=== PATIENT | female | born 1930 | race Caucasian/White ===

== ENCOUNTER 2019-07-30 07:58 | Observation (INO) | payer MEDICARE, OTHER ==
[2019-07-30] MEDS ORDERED: Albuterol/Ipratropium 3.0-0.5 MG/3 ML Neb Soln NEB ONE (08:27)
--- NOTE | 2019-07-30 08:29 | EDM.PDOC ---
ED HPI GENERAL MEDICAL PROBLEM - General Chief Complaint: Respiratory Problem Stated Complaint: BAD COLD Time Seen by Provider: 07/30/19 10:42 - History of Present Illness INITIAL COMMENTS - FREE TEXT/NARRATIVE: HISTORY AND PHYSICAL: History of present illness: Patient's 88-year-old female with history of diabetes hypertension who presents with concern of cough and cold symptoms 1 week patient did not receive any screening this year she denies fever chills or other complaints. Review of systems: As per history of present illness and below otherwise all systems reviewed and negative. Past medical history: As per history of present illness and as reviewed below otherwise noncontributory. Surgical history: As per history of present illness and as reviewed below otherwise noncontributory. Social history: No reported history of drug or alcohol abuse. Family history: As per history of present illness and as reviewed below otherwise noncontributory. Physical exam: HEENT: Atraumatic, normocephalic, pupils reactive, negative for conjunctival pallor or scleral icterus, mucous membranes moist, throat clear, neck supple, nontender, trachea midline. Lungs: Clear to auscultation, breath sounds equal bilaterally, chest nontender. Heart: S1S2, regular, negative for clicks, rubs, or JVD. Abdomen: Soft, nondistended, nontender. Negative for masses or hepatosplenomegaly. Negative for costovertebral tenderness. Pelvis: Stable nontender. Genitourinary: Deferred. Rectal: Deferred. Extremities: Atraumatic, negative for cords or calf pain. Neurovascular unremarkable. Neuro: Awake, alert, oriented. Cranial nerves II through XII unremarkable. Cerebellum unremarkable. Motor and sensory unremarkable throughout. Exam nonfocal. Diagnostics: CBC CMP influenza screening chest x-ray EKG BNP Therapeutics: Albuterol ipratropium nebulizer Impression: #1 tracheobronchitis #2 history of hypertension #3 history of non-insulin- dependent diabetes Definitive disposition and diagnosis as appropriate pending reevaluation and review of above. 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 ED EXAM, GENERAL - Physical Exam Exam: See Below (See dictation) Course - Vital Signs Last Recorded V/S: Last Vital Signs Temp 36.2 C 07/30/19 09:30 Pulse 77 07/30/19 09:30 Resp 16 07/30/19 09:30 BP 166/71 H 07/30/19 09:30 Pulse Ox 96 07/30/19 09:30 - Orders/Labs/Meds Orders: Active Orders 24 hr Category Date Time Status EKG Documentation Completion [RC] STAT Care 07/30/19 08:27 Active RT Aerosol Therapy [RC] ASDIRECTED Care 07/30/19 08:27 Active B-TYPE NATRIURETIC PEPTIDE,BNP [CHEM] Stat Lab 07/30/19 08:38 Received Labs: Laboratory Tests 07/30/19 07/30/19 Range/Units 08:38 08:38 WBC 9.47 (4.0-11.0) K/uL RBC 3.77 L (4.30-5.90) M/uL Hgb 11.9 L (12.0-16.0) g/dL Hct 33.8 L (36.0-46.0) % MCV 89.7 (80.0-98.0) fL MCH 31.6 (27.0-32.0) pg MCHC 35.2 (31.0-37.0) g/dL RDW Std Deviation 41.1 (28.0-62.0) fl RDW Coeff of Neftaly 13 (11.0-15.0) % Plt Count 175 (150-400) K/uL MPV 9.70 (7.40-12.00) fL Neut % (Auto) 75.6 (48.0-80.0) % Lymph % (Auto) 15.7 L (16.0-40.0) % [place] % (Auto) 6.5 (0.0-15.0) % Eos % (Auto) 2.0 (0.0-7.0) % Baso % (Auto) 0.2 (0.0-1.5) % Neut # (Auto) 7.2 H (1.4-5.7) K/uL Lymph # (Auto) 1.5 (0.6-2.4) K/uL [place] # (Auto) 0.6 (0.0-0.8) K/uL Eos # (Auto) 0.2 (0.0-0.7) K/uL Baso # (Auto) 0.0 (0.0-0.1) K/uL Nucleated RBC % 0.0 /100WBC Nucleated RBCs # 0 K/uL Sodium 123 L (136-145) mmol/L Potassium 4.6 (3.5-5.1) mmol/L Chloride 90 L (98-107) mmol/L Carbon Dioxide 20.4 L (21.0-32.0) mmol/L BUN 26 H (7.0-18.0) mg/dL Creatinine 0.9 (0.6-1.0) mg/dL Est Cr Clr Drug Dosing 32.60 mL/min Estimated GFR (MDRD) 59.1 ml/min Glucose 191 H (74-106) mg/dL Calcium 9.0 (8.5-10.1) mg/dL Total Bilirubin 0.3 (0.2-1.0) mg/dL AST 33 (15-37) IU/L ALT 30 (14-63) IU/L Alkaline Phosphatase 47 (46-116) U/L Total Protein 7.5 (6.4-8.2) g/dL Albumin 3.7 (3.4-5.0) g/dL Globulin 3.8 (2.6-4.0) g/dL Albumin/Globulin Ratio 1.0 (0.9-1.6) Meds: Medications Discontinued Medications Generic Name Dose Route Start Last Admin Trade Name Elana PRN Reason Stop Dose Admin Albuterol/Ipratropium 3 ml 07/30/19 08:27 07/30/19 09:06 Duoneb 3.0-0.5 Mg/3 Ml NEB 07/30/19 08:28 3 ml ONETIME ONE Administration Departure - Departure Time of Disposition: 10:42 Disposition: Refer to Observation Condition: Good Clinical Impression: Viral syndrome, Hyponatremia, Dehydration - Discharge Information Referrals: Afia Leo DO [Primary Care Provider] - Forms: ED Department Discharge - My Orders Last 24 Hours: My Active Orders 07/30/19 08:27 EKG Documentation Completion [RC] STAT RT Aerosol Therapy [RC] ASDIRECTED 07/30/19 08:38 B-TYPE NATRIURETIC PEPTIDE,BNP [CHEM] Stat - Assessment/Plan Last 24 Hours: My Active Orders 07/30/19 08:27 EKG Documentation Completion [RC] STAT RT Aerosol Therapy [RC] ASDIRECTED 07/30/19 08:38 B-TYPE NATRIURETIC PEPTIDE,BNP [CHEM] Stat
[2019-07-30 09:20] LABS: CARBON DIOXIDE,CO2 20.4 mmol/L (21.0-32.0); POTASSIUM,K 4.6 mmol/L (3.5-5.1)
--- NOTE | 2019-07-30 10:24 | CR ---
INDICATION: Cough COMPARISON: none TECHNIQUE: Two view chest. FINDINGS: The lungs are clear. The heart, mediastinum and pulmonary vessels are of normal size. There is no evidence of pleural fluid. IMPRESSION: Negative chest. Dictated by Joe Babin MD @ Jul 30 2019 10:21AM Signed by Dr. Joe Babin @ Jul 30 2019 10:22AM
[2019-07-30] MEDS: Sodium Chloride 0.9% 1,000 ML IV SCH ×2 (11:00→18:37)
--- NOTE | 2019-07-30 11:50 | PCM.HP.2 ---
H&P History of Present Illness - General Date of Service: 07/30/19 Admit Problem/Dx: Admission Diagnosis/Problem Admission Diagnosis/Problem Hyponatremia - History of Present Illness Initial Comments - Free Text/Narative: 88 yo female with pmh of DM who presents to the ED with complaint of cold symptoms for past 6 days. Patient has had a cough and nasal congestion. She denies any fevers or shortness of breath. She reports feeling dizzy but thought this was due to the cold medicine she had been taking at night. She reports she has not been eating and drinking as much as she usually does. - Related Data Allergies/Adverse Reactions: Allergies Allergy/AdvReac Type Severity Reaction Status Date / Time No Known Allergies Allergy Verified 07/30/19 15:26 Home Medications: Home Meds Aspirin 81 mg PO BEDTIME 07/30/19 [History] Glimepiride 3 mg PO DAILY 07/30/19 [History] Lisinopril 2.5 mg PO DAILY 07/30/19 [History] Simvastatin 20 mg PO BEDTIME 07/30/19 [History] SitaGLIPtin [Januvia] 25 mg PO BEDTIME 07/30/19 [History] metFORMIN HCl [Metformin HCl ER] 500 mg PO BID 07/30/19 [History] Past Medical History HEENT History: Reports: Impaired Vision Cardiovascular History: Reports: High Cholesterol, Hypertension 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 Exam - Exam Exam: See Below - Vital Signs Vital Signs: Last Vital Signs Temp 36.2 C 07/30/19 09:30 Pulse 77 07/30/19 09:30 Resp 16 07/30/19 09:30 BP 166/71 H 07/30/19 09:30 Pulse Ox 96 07/30/19 09:30 Weight: 76 kg - Exam General: Alert, Oriented HEENT: Mucosa Moist & [place], Posterior Pharynx Clear Lungs: Clear to Auscultation, Normal Respiratory Effort Cardiovascular: Regular Rate, Regular Rhythm GI/Abdominal Exam: Normal Bowel Sounds, Soft, Non-Tender Extremities: Non-Tender, No Pedal Edema Skin: Warm, Dry, Intact - Patient Data Lab Results Last 24 hrs: Laboratory Results - last 24 hr 07/30/19 07/30/19 07/30/19 Range/Units 08:38 08:38 08:38 WBC 9.47 (4.0-11.0) K/uL RBC 3.77 L (4.30-5.90) M/uL Hgb 11.9 L (12.0-16.0) g/dL Hct 33.8 L (36.0-46.0) % MCV 89.7 (80.0-98.0) fL MCH 31.6 (27.0-32.0) pg MCHC 35.2 (31.0-37.0) g/dL RDW Std Deviation 41.1 (28.0-62.0) fl RDW Coeff of Neftaly 13 (11.0-15.0) % Plt Count 175 (150-400) K/uL MPV 9.70 (7.40-12.00) fL Neut % (Auto) 75.6 (48.0-80.0) % Lymph % (Auto) 15.7 L (16.0-40.0) % [place] % (Auto) 6.5 (0.0-15.0) % Eos % (Auto) 2.0 (0.0-7.0) % Baso % (Auto) 0.2 (0.0-1.5) % Neut # (Auto) 7.2 H (1.4-5.7) K/uL Lymph # (Auto) 1.5 (0.6-2.4) K/uL [place] # (Auto) 0.6 (0.0-0.8) K/uL Eos # (Auto) 0.2 (0.0-0.7) K/uL Baso # (Auto) 0.0 (0.0-0.1) K/uL Nucleated RBC % 0.0 /100WBC Nucleated RBCs # 0 K/uL Sodium 123 L (136-145) mmol/L Potassium 4.6 (3.5-5.1) mmol/L Chloride 90 L (98-107) mmol/L Carbon Dioxide 20.4 L (21.0-32.0) mmol/L BUN 26 H (7.0-18.0) mg/dL Creatinine 0.9 (0.6-1.0) mg/dL Est Cr Clr Drug Dosing 32.60 mL/min Estimated GFR (MDRD) 59.1 ml/min Glucose 191 H (74-106) mg/dL Calcium 9.0 (8.5-10.1) mg/dL Total Bilirubin 0.3 (0.2-1.0) mg/dL AST 33 (15-37) IU/L ALT 30 (14-63) IU/L Alkaline Phosphatase 47 (46-116) U/L B-Natriuretic Peptide 61 (<100) PG/ML Total Protein 7.5 (6.4-8.2) g/dL Albumin 3.7 (3.4-5.0) g/dL Globulin 3.8 (2.6-4.0) g/dL Albumin/Globulin Ratio 1.0 (0.9-1.6) Result Diagrams: 07/30/19 08:38 07/31/19 14:55 Epi Results Last 24 hrs: Microbiology 07/30/19 08:27 Influenza Type A Antigen Screen - Final Nasopharyngeal Swab NEGATIVE INFLUENZA A VIRUS AG REFERENCE RANGE: NEGATIVE Influenza Type B Antigen Screen - Final NEGATIVE INFLUENZA B VIRUS AG REFERENCE RANGE: NEGATIVE Problem List Initiated/Reviewed/Updated: Yes Orders Last 24hrs: Active Orders 24 hr Category Date Time Status Patient Status [ADT] Stat ADT 07/30/19 10:43 Active Antiembolic Devices [RC] PER UNIT ROUTINE Care 07/30/19 11:46 Ordered Blood Glucose Check, Bedside [RC] TIDMEALS Care 07/30/19 11:46 Ordered EKG Documentation Completion [RC] STAT Care 07/30/19 08:27 Active Oxygen Therapy [RC] PRN Care 07/30/19 11:46 Ordered RT Aerosol Therapy [RC] ASDIRECTED Care 07/30/19 08:27 Active Up ad Candi [RC] ASDIRECTED Care 07/30/19 11:46 Ordered VTE/DVT Education [RC] PER UNIT ROUTINE Care 07/30/19 11:46 Ordered Vital Signs [RC] Q4H Care 07/30/19 11:46 Ordered [place] [employer] Diet [DIET] Diet 07/30/19 Dinner Ordered BMP [BASIC METABOLIC PANEL,BMP] [CHEM] Q6H Lab 07/30/19 14:00 Ordered BMP [BASIC METABOLIC PANEL,BMP] [CHEM] Q6H Lab 07/30/19 20:00 Ordered BMP [BASIC METABOLIC PANEL,BMP] [CHEM] Q6H Lab 07/31/19 02:00 Ordered BMP [BASIC METABOLIC PANEL,BMP] [CHEM] Q6H Lab 07/31/19 08:00 Ordered Aspirin Med 07/31/19 09:00 Ordered 81 mg PO DAILY Insulin Aspart [NovoLOG] Med 07/30/19 17:00 Ordered See Protocol SUBCUT TIDAC Lisinopril Med 07/31/19 09:00 Ordered 2.5 mg PO DAILY Simvastatin [Zocor] Med 07/31/19 09:00 Ordered 20 mg PO DAILY Sodium Chloride 0.9% [Normal Saline] 1,000 ml Med 07/30/19 10:45 Active IV ASDIRECTED Sequential Compression Device [OM.PC] Per Unit Routine Oth 07/30/19 11:46 Ordered Resuscitation Status Routine Resus Stat 07/30/19 11:46 Ordered Medication Orders Aspirin (Aspirin) 81 mg PO DAILY ANDREW Sodium Chloride (Normal Saline) 1,000 mls @ 125 mls/hr IV ASDIRECTED ANDREW Last Admin: 07/30/19 11:00 Dose: 125 mls/hr Insulin Aspart (Novolog) 0 unit SUBCUT TIDAC ANDREW; Protocol Non-Formulary Medication (Lisinopril) 2.5 mg PO DAILY ANDREW Simvastatin (Zocor) 20 mg PO DAILY ANDREW Assessment/Plan Comment:: 88 yo female admitted for hyponatremia [facility] due to dehydration from acute viral upper respiratory track infection. We will give normal saline and monitor her sodium.
[2019-07-30 14:37] LABS: CARBON DIOXIDE,CO2 25.8 mmol/L (21.0-32.0); POTASSIUM,K 4.8 mmol/L (3.5-5.1)
[2019-07-30] MEDS ORDERED: Pneumococcal Polyvalent-23 Vaccine 0.5 ML SDV IM ONE (15:10)
[2019-07-30] MEDS: Insulin Aspart 100 Units/ML 3 ML Pen SUBCUT SCH (17:16)
[2019-07-30] MEDS ORDERED: guaiFENesin 600 MG Tab.ER PO PRN (18:09)
[2019-07-30 21:38] LABS: CARBON DIOXIDE,CO2 21.2 mmol/L (21.0-32.0)
[2019-07-31 02:18] LABS: BLOOD UREA NITROGEN,BUN 14 mg/dL (7.0-18.0); CHLORIDE,CL 94 mmol/L (98-107); GLUCOSE RANDOM 172 mg/dL (74-106); POTASSIUM,K 4.4 mmol/L (3.5-5.1); SODIUM,NA 127 mmol/L (136-145)
[2019-07-31] MEDS: Sodium Chloride 0.9% 1,000 ML IV SCH ×3 (02:46→18:20)
[2019-07-31] MEDS ORDERED: Acetaminophen 325 MG Tab PO PRN (03:44)
[2019-07-31] MEDS: Insulin Aspart 100 Units/ML 3 ML Pen SUBCUT SCH ×3 (06:30→17:49)
[2019-07-31] MEDS: Simvastatin 20 MG Tab PO SCH (09:24)
[2019-07-31] MEDS: Aspirin 81 MG Tab.Chew PO SCH (09:25)
[2019-07-31] MEDS: Lisinopril 5 MG Tab PO SCH (09:25)
[2019-07-31 09:53] LABS: BLOOD UREA NITROGEN,BUN 12 mg/dL (7.0-18.0); CARBON DIOXIDE,CO2 23.5 mmol/L (21.0-32.0); CHLORIDE,CL 97 mmol/L (98-107); GLUCOSE RANDOM 152 mg/dL (74-106); POTASSIUM,K 4.3 mmol/L (3.5-5.1); SODIUM,NA 128 mmol/L (136-145)
--- NOTE | 2019-07-31 11:38 | PCM.PN ---
- General Info Date of Service: 07/31/19 Admission Dx/Problem (Free Text): Admission Diagnosis/Problem Admission Diagnosis/Problem Hyponatremia Subjective Update: Feeling a little better today, continues to have alaina cough and didn't sleep well. No chest pain, no shortness of breath. Functional Status: Reports: Pain Controlled, Tolerating Diet, Ambulating, Urinating - Review of Systems General: Reports: Fatigue, Malaise HEENT: Reports: Sinus Congestion. Denies: Headaches, Sore Throat, Visual Changes Pulmonary: Reports: Cough (dry). Denies: Shortness of Breath, Wheezing Cardiovascular: Reports: No Symptoms. Denies: Chest Pain, Palpitations Gastrointestinal: Reports: No Symptoms. Denies: Abdominal Pain, Nausea, Vomiting Genitourinary: Reports: No Symptoms Musculoskeletal: Reports: No Symptoms Skin: Reports: No Symptoms Neurological: Reports: No Symptoms Psychiatric: Reports: No Symptoms - Patient Data Vitals - Most Recent: Last Vital Signs Temp 98.2 F 07/31/19 07:53 Pulse 69 07/31/19 07:53 Resp 16 07/31/19 07:53 BP 149/64 H 07/31/19 09:25 Pulse Ox 95 07/31/19 07:53 Weight - Most Recent: 73.028 kg I&O - Last 24 Hours: Intake & Output 07/30/19 07/31/19 07/31/19 22:59 06:59 14:59 Intake Total 2600 655 Output Total 1400 Balance 1200 655 Lab Results Last 24 Hours: Laboratory Results - last 24 hr 07/30/19 07/30/19 07/30/19 Range/Units 13:35 14:05 15:41 Sodium 124 L (136-145) mmol/L Potassium 4.8 (3.5-5.1) mmol/L Chloride 92 L (98-107) mmol/L Carbon Dioxide 25.8 (21.0-32.0) mmol/L BUN 24 H (7.0-18.0) mg/dL Creatinine 1.1 H (0.6-1.0) mg/dL Est Cr Clr Drug Dosing 25.39 mL/min Estimated GFR (MDRD) 46.9 ml/min Glucose 225 H (74-106) mg/dL POC Glucose 232 H 155 H (60-110) mg/dL Calcium 8.9 (8.5-10.1) mg/dL 07/30/19 07/31/19 07/31/19 Range/Units 20:15 01:58 05:59 Sodium 126 L 127 L (136-145) mmol/L Potassium 5.0 4.4 (3.5-5.1) mmol/L Chloride 94 L 94 L (98-107) mmol/L Carbon Dioxide 21.2 25.0 (21.0-32.0) mmol/L BUN 19 H 14 (7.0-18.0) mg/dL Creatinine 0.9 0.8 (0.6-1.0) mg/dL Est Cr Clr Drug Dosing 31.04 34.91 mL/min Estimated GFR (MDRD) 59.1 > 60.0 ml/min Glucose 272 H 172 H (74-106) mg/dL POC Glucose 159 H (60-110) mg/dL Calcium 8.6 8.1 L (8.5-10.1) mg/dL 07/31/19 Range/Units 08:20 Sodium 128 L (136-145) mmol/L Potassium 4.3 (3.5-5.1) mmol/L Chloride 97 L (98-107) mmol/L Carbon Dioxide 23.5 (21.0-32.0) mmol/L BUN 12 (7.0-18.0) mg/dL Creatinine 0.8 (0.6-1.0) mg/dL Est Cr Clr Drug Dosing 34.91 mL/min Estimated GFR (MDRD) > 60.0 ml/min Glucose 152 H (74-106) mg/dL POC Glucose (60-110) mg/dL Calcium 8.2 L (8.5-10.1) mg/dL Epi Results Last 24 Hours: Microbiology 07/30/19 08:27 Influenza Type A Antigen Screen - Final Nasopharyngeal Swab NEGATIVE INFLUENZA A VIRUS AG REFERENCE RANGE: NEGATIVE Influenza Type B Antigen Screen - Final NEGATIVE INFLUENZA B VIRUS AG REFERENCE RANGE: NEGATIVE Med Orders - Current: Current Medications Acetaminophen (Tylenol) 650 mg PO Q6H PRN PRN Reason: Pain Last Admin: 07/31/19 04:01 Dose: 650 mg Aspirin (Aspirin) 81 mg PO DAILY ANDREW Last Admin: 07/31/19 09:25 Dose: 81 mg Benzonatate (Tessalon Perles) 100 mg PO TID [facility] Guaifenesin (Mucinex) 600 mg PO BID PRN PRN Reason: Congestion Last Admin: 07/30/19 18:48 Dose: 600 mg Sodium Chloride (Normal Saline) 1,000 mls @ 125 mls/hr IV ASDIRECTED [facility] Last Admin: 07/31/19 10:54 Dose: 125 mls/hr Insulin Aspart (Novolog) 0 unit SUBCUT TIDAC [facility]; Protocol Last Admin: 07/31/19 06:30 Dose: 1 unit Lisinopril (Prinivil) 2.5 mg PO DAILY [facility] Last Admin: 07/31/19 09:25 Dose: 2.5 mg Simvastatin (Zocor) 20 mg PO DAILY [facility] Last Admin: 07/31/19 09:24 Dose: 20 mg Discontinued Medications Albuterol/Ipratropium (Duoneb 3.0-0.5 Mg/3 Ml) 3 ml NEB ONETIME ONE Stop: 07/30/19 08:28 Last Admin: 07/30/19 09:06 Dose: 3 ml Influenza Virus Vaccine (Pharmacy To Dose - Influenza Vaccine) 1 each IM ONETIME ONE Stop: 07/30/19 15:11 Influenza Virus Vaccine (Fluzone High-Dose 2019-20 Syringe) 180 mcg IM .ONCE ONE Stop: 07/30/19 15:16 Pneumococcal Polyvalent Vaccine (Pneumovax 23) 0.5 ml IM .ONCE ONE Stop: 07/30/19 15:11 - Exam General: Alert, Oriented, Cooperative, No Acute Distress Lungs: Clear to Auscultation, Normal Respiratory Effort Cardiovascular: Regular Rate, Regular Rhythm GI/Abdominal Exam: Normal Bowel Sounds, Soft, Non-Tender, No Organomegaly Extremities: Normal Inspection, Normal Range of Motion, Non-Tender, No Pedal Edema Neurological: No New Focal Deficit Psy/Mental Status: Alert, Normal Affect, Normal Mood - Problem List & Annotations (1) Viral bronchitis SNOMED Code(s): 15144405 Code(s): J20.8 - ACUTE BRONCHITIS DUE TO OTHER SPECIFIED ORGANISMS Status: Acute Current Visit: Yes (2) Dehydration SNOMED Code(s): 33344085 Code(s): E86.0 - DEHYDRATION Status: Acute Current Visit: Yes (3) Hyponatremia SNOMED Code(s): 97542902 Code(s): E87.1 - HYPO-OSMOLALITY AND HYPONATREMIA Status: Acute Current Visit: Yes (4) HTN (hypertension) SNOMED Code(s): 04590575 Code(s): I10 - ESSENTIAL (PRIMARY) HYPERTENSION Status: Chronic Current Visit: Yes Qualifiers: Hypertension type: essential hypertension Qualified Code(s): I10 - Essential (primary) hypertension (5) DM type 2 (diabetes mellitus, type 2) SNOMED Code(s): 01034942 Code(s): E11.9 - TYPE 2 DIABETES MELLITUS WITHOUT COMPLICATIONS Status: Chronic Current Visit: Yes Qualifiers: Diabetes mellitus fci insulin use: without fci use Diabetes mellitus complication status: without complication Qualified Code(s): E11.9 - Type 2 diabetes mellitus without complications - Problem List Review Problem List Initiated/Reviewed/Updated: Yes - My Orders Last 24 Hours: My Active Orders 07/31/19 11:33 Benzonatate [Tessalon Perles] 100 mg PO TID - Plan Plan:: 88 yo female admitted for hyponatremia likely due to dehydration from acute viral upper respiratory tract infection. 1. Hyponatremia: Slow steady improvement, Na 128 this morning. Contnue IVFs at NS 125. Explained to her we like slow improvement. 2. Viral bronchitis/URI: Add Tessalon perles for cough. Monitor. 3. HTN: Stable, continue medication 4. DM Type 2: Continue medications, BS stable. Novolog SSI. VTE prophylaxis: Ambulation and SCDs Dispo: 1 day
[2019-07-31] MEDS: Benzonatate 100 MG Cap PO SCH ×3 (12:17→21:14)
[2019-07-31 15:57] LABS: BLOOD UREA NITROGEN,BUN 11 mg/dL (7.0-18.0); CARBON DIOXIDE,CO2 24.5 mmol/L (21.0-32.0); CHLORIDE,CL 98 mmol/L (98-107); GLUCOSE RANDOM 202 mg/dL (74-106); POTASSIUM,K 4.4 mmol/L (3.5-5.1); SODIUM,NA 130 mmol/L (136-145)
[2019-07-31 21:26] LABS: CARBON DIOXIDE,CO2 25.5 mmol/L (21.0-32.0); POTASSIUM,K 4.7 mmol/L (3.5-5.1)
[2019-08-01] MEDS: Sodium Chloride 0.9% 1,000 ML IV SCH ×2 (02:54→10:52)
[2019-08-01 03:34] LABS: BLOOD UREA NITROGEN,BUN 10 mg/dL (7.0-18.0); CARBON DIOXIDE,CO2 25.7 mmol/L (21.0-32.0); CHLORIDE,CL 99 mmol/L (98-107); GLUCOSE RANDOM 184 mg/dL (74-106); POTASSIUM,K 4.3 mmol/L (3.5-5.1); SODIUM,NA 133 mmol/L (136-145)
[2019-08-01] MEDS: Benzonatate 100 MG Cap PO SCH ×2 (06:32→13:18)
[2019-08-01] MEDS: Insulin Aspart 100 Units/ML 3 ML Pen SUBCUT SCH ×2 (06:35→12:44)
[2019-08-01] MEDS: Aspirin 81 MG Tab.Chew PO SCH (08:04)
[2019-08-01] MEDS: Lisinopril 5 MG Tab PO SCH (08:04)
[2019-08-01] MEDS: Simvastatin 20 MG Tab PO SCH (08:04)
[2019-08-01] MEDS ORDERED: Benzocaine/Cetylpyridinium/Menthol Lozenge MUCMEM PRN ×2 (08:56→11:29)
[2019-08-01 09:28] LABS: BLOOD UREA NITROGEN,BUN 10 mg/dL (7.0-18.0); CARBON DIOXIDE,CO2 22.7 mmol/L (21.0-32.0); CHLORIDE,CL 98 mmol/L (98-107); GLUCOSE RANDOM 295 mg/dL (74-106); POTASSIUM,K 4.3 mmol/L (3.5-5.1); SODIUM,NA 130 mmol/L (136-145)
[2019-08-01] MEDS: hydrALAZINE 20 MG/ML SDV IVPUSH ONE ×2 (12:44→17:17)
[2019-08-01] MEDS ORDERED: Lisinopril 5 MG Tab PO ONE (13:04)
--- NOTE | 2019-08-01 16:25 | PCM.DCSUM1 ---
<Ronald Matthews - Last Filed: 08/01/19 21:34> Discharge Summary - Hospital Course Free Text/Narrative:: 88-year-old female admitted for hyponatremia secondary to dehydration and acute viral bronchitis. She has a PMH of DM type 2, hyperlipidemia and HTN. Her sodium level on admission was 123. She was started on IV NS and BMP's were trended. Her sodium levels improved slowly throughout her hospitalization. On day of discharge, patient reported feeling better and ambulated without any difficulty. Patient also noted to have elevated blood pressures during hospitalization and her lisinopril dose was increased from 2.5 mg qd to 10 mg qd on discharge. Patient advised to follow-up with her PCP. - Discharge Data Discharge Date: 08/01/19 Discharge Disposition: Home, Self-Care 01 Condition: Good - Referral to Home Health Primary Care Physician: Afia Leo DO - Patient Instructions Diet: Diabetic Diet Activity: As Tolerated Notify Provider of: Fever, Increased Pain, Swelling and Redness, Drainage, Nausea and/or Vomiting - Discharge Plan *PRESCRIPTION DRUG MONITORING PROGRAM REVIEWED*: Not Applicable *COPY OF PRESCRIPTION DRUG MONITORING REPORT IN PATIENT ANA MARÍA: Not Applicable Prescriptions/Med Rec: Benzonatate [Tessalon Perle] 100 mg PO Q8H PRN 4 Days #12 capsule PRN Reason: Cough Lisinopril 10 mg PO DAILY 30 Days #30 tablet Home Medications: Home Meds Aspirin 81 mg PO BEDTIME 07/30/19 [History] Glimepiride 3 mg PO DAILY 07/30/19 [History] Simvastatin 20 mg PO BEDTIME 07/30/19 [History] SitaGLIPtin [Januvia] 25 mg PO BEDTIME 07/30/19 [History] metFORMIN HCl [Metformin HCl ER] 500 mg PO BID 07/30/19 [History] Benzonatate [Tessalon Perle] 100 mg PO Q8H PRN 4 Days #12 capsule 08/01/19 [Rx] Lisinopril 10 mg PO DAILY 30 Days #30 tablet 08/01/19 [Rx] Patient Handouts: Hyponatremia, [id number], Lisinopril tablets, Benzonatate capsules Referrals: Sonia Morrissey MD [Ordering Only Provider] - 08/11/19 10:45 am (Please arrive 15 minutes early for check-in ) - Discharge Summary/Plan Comment DC Time >30 min.: No - Patient Data Vitals - Most Recent: Last Vital Signs Temp 98.3 F 08/01/19 16:00 Pulse 77 08/01/19 16:00 Resp 20 08/01/19 16:00 BP 175/84 H 08/01/19 14:03 Pulse Ox 97 08/01/19 16:00 Weight - Most Recent: 76 kg I&O - Last 24 hours: Intake & Output 08/01/19 08/01/19 08/01/19 06:59 14:59 22:59 Intake Total 2760 Output Total 1000 Balance 1760 Lab Results - Last 24 hrs: Laboratory Results - last 24 hr 07/31/19 07/31/19 07/31/19 Range/Units 16:43 17:40 21:05 Sodium 132 L (136-145) mmol/L Potassium 4.7 (3.5-5.1) mmol/L Chloride 98 (98-107) mmol/L Carbon Dioxide 25.5 (21.0-32.0) mmol/L BUN 13 (7.0-18.0) mg/dL Creatinine 0.9 (0.6-1.0) mg/dL Est Cr Clr Drug Dosing 31.04 mL/min Estimated GFR (MDRD) 59.1 ml/min Glucose 209 H (74-106) mg/dL POC Glucose 172 H 142 H (60-110) mg/dL Calcium 8.4 L (8.5-10.1) mg/dL 08/01/19 08/01/19 08/01/19 Range/Units 03:05 06:33 09:07 Sodium 133 L 130 L (136-145) mmol/L Potassium 4.3 4.3 (3.5-5.1) mmol/L Chloride 99 98 (98-107) mmol/L Carbon Dioxide 25.7 22.7 (21.0-32.0) mmol/L BUN 10 10 (7.0-18.0) mg/dL Creatinine 0.8 0.8 (0.6-1.0) mg/dL Est Cr Clr Drug Dosing 34.91 34.91 mL/min Estimated GFR (MDRD) > 60.0 > 60.0 ml/min Glucose 184 H 295 H (74-106) mg/dL POC Glucose 159 H (60-110) mg/dL Calcium 8.3 L 8.1 L (8.5-10.1) mg/dL 08/01/19 Range/Units 12:01 Sodium (136-145) mmol/L Potassium (3.5-5.1) mmol/L Chloride (98-107) mmol/L Carbon Dioxide (21.0-32.0) mmol/L BUN (7.0-18.0) mg/dL Creatinine (0.6-1.0) mg/dL Est Cr Clr Drug Dosing mL/min Estimated GFR (MDRD) ml/min Glucose (74-106) mg/dL POC Glucose 166 H (60-110) mg/dL Calcium (8.5-10.1) mg/dL Med Orders - Current: Current Medications Acetaminophen (Tylenol) 650 mg PO Q6H PRN PRN Reason: Pain Last Admin: 07/31/19 04:01 Dose: 650 mg Aspirin (Aspirin) 81 mg PO DAILY [facility] Last Admin: 08/01/19 08:04 Dose: 81 mg Benzocaine/Menthol (Cepacol Sore Throat) 1 lozenge MUCMEM Q2H PRN PRN Reason: Sore Throat Benzonatate (Tessalon Perles) 100 mg PO TID [facility] Last Admin: 08/01/19 13:18 Dose: 100 mg Guaifenesin (Mucinex) 600 mg PO BID PRN PRN Reason: Congestion Last Admin: 07/30/19 18:48 Dose: 600 mg Sodium Chloride (Normal Saline) 1,000 mls @ 125 mls/hr IV ASDIRECTED [facility] Last Admin: 08/01/19 10:52 Dose: 125 mls/hr Insulin Aspart (Novolog) 0 unit SUBCUT TIDAC [facility]; Protocol Last Admin: 08/01/19 12:44 Dose: 1 unit Lisinopril (Prinivil) 2.5 mg PO DAILY [facility] Last Admin: 08/01/19 08:04 Dose: 2.5 mg Simvastatin (Zocor) 20 mg PO DAILY [facility] Last Admin: 08/01/19 08:04 Dose: 20 mg Discontinued Medications Albuterol/Ipratropium (Duoneb 3.0-0.5 Mg/3 Ml) 3 ml NEB ONETIME ONE Stop: 07/30/19 08:28 Last Admin: 07/30/19 09:06 Dose: 3 ml Benzocaine/Menthol (Cepacol Sore Throat) 1 lozenge MUCMEM Q4H PRN PRN Reason: Sore Throat Last Admin: 08/01/19 10:21 Dose: 1 lozenge Hydralazine HCl (Apresoline) 20 mg IVPUSH ONETIME ONE Stop: 08/01/19 12:27 Influenza Virus Vaccine (Pharmacy To Dose - Influenza Vaccine) 1 each IM ONETIME ONE Stop: 07/30/19 15:11 Influenza Virus Vaccine (Fluzone High-Dose 2018- Syringe) 180 mcg IM .ONCE ONE Stop: 07/30/19 15:16 Lisinopril (Prinivil) 2.5 mg PO ONETIME ONE Stop: 08/01/19 13:05 Last Admin: 08/01/19 13:18 Dose: 2.5 mg Pneumococcal Polyvalent Vaccine (Pneumovax 23) 0.5 ml IM .ONCE ONE Stop: 07/30/19 15:11 <Kenzie Lewis - Last Filed: 08/04/19 11:23> Discharge Summary - Hospital Course HPI Initial Comments: I have seen and evaluated the patient and agree with the residents note unless specified in my note - Referral to Home Health Primary Care Physician: Afia Leo DO - Patient Data Vitals - Most Recent: Last Vital Signs Temp 36.8 C 08/01/19 16:00 Pulse 77 08/01/19 16:00 Resp 20 08/01/19 16:00 BP 175/84 H 08/01/19 14:03 Pulse Ox 97 08/01/19 16:00 Med Orders - Current: Current Medications Discontinued Medications Acetaminophen (Tylenol) 650 mg PO Q6H PRN PRN Reason: Pain Last Admin: 07/31/19 04:01 Dose: 650 mg Albuterol/Ipratropium (Duoneb 3.0-0.5 Mg/3 Ml) 3 ml NEB ONETIME ONE Stop: 07/30/19 08:28 Last Admin: 07/30/19 09:06 Dose: 3 ml Aspirin (Aspirin) 81 mg PO DAILY [facility] Last Admin: 08/01/19 08:04 Dose: 81 mg Benzocaine/Menthol (Cepacol Sore Throat) 1 lozenge MUCMEM Q4H PRN PRN Reason: Sore Throat Last Admin: 08/01/19 10:21 Dose: 1 lozenge Benzocaine/Menthol (Cepacol Sore Throat) 1 lozenge MUCMEM Q2H PRN PRN Reason: Sore Throat Benzonatate (Tessalon Perles) 100 mg PO TID [facility] Last Admin: 08/01/19 13:18 Dose: 100 mg Guaifenesin (Mucinex) 600 mg PO BID PRN PRN Reason: Congestion Last Admin: 07/30/19 18:48 Dose: 600 mg Hydralazine HCl (Apresoline) 20 mg IVPUSH ONETIME ONE Stop: 08/01/19 12:27 Last Admin: 08/01/19 17:17 Dose: Not Given Sodium Chloride (Normal Saline) 1,000 mls @ 125 mls/hr IV ASDIRECTED [facility] Last Admin: 08/01/19 10:52 Dose: 125 mls/hr Influenza Virus Vaccine (Pharmacy To Dose - Influenza Vaccine) 1 each IM ONETIME ONE Stop: 07/30/19 15:11 Influenza Virus Vaccine (Fluzone High-Dose 2019-20 Syringe) 180 mcg IM .ONCE ONE Stop: 07/30/19 15:16 Insulin Aspart (Novolog) [facility]; Protocol Last Admin: 08/01/19 12:44 Dose: 1 unit Lisinopril (Prinivil) 2.5 mg PO DAILY [facility] Last Admin: 08/01/19 08:04 Dose: 2.5 mg Lisinopril (Prinivil) 2.5 mg PO ONETIME ONE Stop: 08/01/19 13:05 Last Admin: 08/01/19 13:18 Dose: 2.5 mg Pneumococcal Polyvalent Vaccine (Pneumovax 23) 0.5 ml IM .ONCE ONE Stop: 07/30/19 15:11 Simvastatin (Zocor) 20 mg PO DAILY [facility] Last Admin: 08/01/19 08:04 Dose: 20 mg
== END 2019-08-01 16:15 | disposition home or self-care (01) ==
LOC: MW.ED 07:58 → MW.MS 13:26
PROVIDERS: ADMIT Internal Medicine; ATTEND Internal Medicine
DX: E87.1 Hypo-osmolality and hyponatremia (principal); E86.0 Dehydration; J20.8 Acute bronchitis due to other specified organisms; E11.9 Type 2 diabetes mellitus without complications; E78.5 Hyperlipidemia, unspecified; I10 Essential (primary) hypertension; E78.00 Pure hypercholesterolemia, unspecified
CPT/HCPCS: 36415; 71046; 80048; 80053; 82962; 83880; 85025; 87804; 93005; 94640; 96360; 96361; 99285; A9270; J1815; J7030; 99284; G0378; J0360; J7620-GY

== ENCOUNTER 2019-08-01 21:22 | Emergency (ER) | payer MEDICARE, OTHER ==
--- NOTE | 2019-08-01 21:45 | EDM.PDOC ---
ED HPI GENERAL MEDICAL PROBLEM - General Chief Complaint: General Stated Complaint: BLOOD PRESSURE CLIMBING Time Seen by Provider: 08/01/19 21:44 Source of Information: Reports: Patient - History of Present Illness INITIAL COMMENTS - FREE TEXT/NARRATIVE: HISTORY AND PHYSICAL: History of present illness: [D[place] with hypertension and recent discharge presents with elevated blood pressure, her son seems to be checking her blood pressure repeatedly this is making her agitated and anxious she does not have any other symptoms no fever nausea vomiting chills sweats no chest pain shortness breath headache dizziness palpitation no bowel or urine symptoms recent admission with bronchitis which is improved she is completely asymptomatic and does not want P here however her family is concerned and anxious as well ] Review of systems: As per history of present illness and below otherwise all systems reviewed and negative. Past medical history: As per history of present illness and as reviewed below otherwise noncontributory. Surgical history: As per history of present illness and as reviewed below otherwise noncontributory. Social history: No reported history of drug or alcohol abuse. Family history: As per history of present illness and as reviewed below otherwise noncontributory. Physical exam: HEENT: Atraumatic, normocephalic, pupils reactive, negative for conjunctival pallor or scleral icterus, mucous membranes moist, throat clear, neck supple, nontender, trachea midline. Lungs: Clear to auscultation, breath sounds equal bilaterally, chest nontender. Heart: S1S2, regular, negative for clicks, rubs, or JVD. Abdomen: Soft, nondistended, nontender. Negative for masses or hepatosplenomegaly. Negative for costovertebral tenderness. Pelvis: Stable nontender. Genitourinary: Deferred. Rectal: Deferred. Extremities: Atraumatic, negative for cords or calf pain. Neurovascular unremarkable. Neuro: Awake, alert, oriented. Cranial nerves II through XII unremarkable. Cerebellum unremarkable. Motor and sensory unremarkable throughout. Exam nonfocal. Diagnostics: [Recent lab on file from hospital stay, discharge at 2:00 ] Therapeutics: [ continue your current medication ] Impression: hypertension-sable Symptoms admission Patient offered readmission for observation however refused Definitive disposition and diagnosis as appropriate pending reevaluation and review of above. - Related Data Allergies Allergy/AdvReac Type Severity Reaction Status Date / Time No Known Allergies Allergy Verified 08/01/19 21:37 Home Meds: Home Meds Aspirin 81 mg PO BEDTIME 07/30/19 [History] Glimepiride 3 mg PO DAILY 07/30/19 [History] Simvastatin 20 mg PO BEDTIME 07/30/19 [History] SitaGLIPtin [Januvia] 25 mg PO BEDTIME 07/30/19 [History] metFORMIN HCl [Metformin HCl ER] 500 mg PO BID 07/30/19 [History] Benzonatate [Tessalon Perle] 100 mg PO Q8H PRN 4 Days #12 capsule 08/01/19 [Rx] Lisinopril 10 mg PO DAILY 30 Days #30 tablet 08/01/19 [Rx] Past Medical History HEENT History: Reports: Hard of Hearing, Impaired Vision Cardiovascular History: Reports: High Cholesterol, Hypertension Respiratory History: Reports: None Gastrointestinal History: Reports: None BLOCK CUTTER History: Reports: Other BLOCK CUTTER History: Hysterectomy Musculoskeletal History: Reports: None Neurological History: Reports: None Psychiatric History: Reports: Anxiety Endocrine/Metabolic History: Reports: Diabetes, Type II Hematologic History: Reports: None Immunologic History: Reports: None Oncologic (Cancer) History: Reports: None Dermatologic History: Reports: None - Infectious Disease History Infectious Disease History: Reports: None - Past Surgical History Head Surgeries/Procedures: Reports: None Female Surgical History: Reports: Hysterectomy Social & Family History - Family History Family Medical History: Noncontributory - Tobacco Use Smoking Status *Q: Never Smoker - Caffeine Use Caffeine Use: Reports: Coffee - Recreational Drug Use Recreational Drug Use: No ED ROS GENERAL - Review of Systems Review Of Systems: See Below ED EXAM, GENERAL - Physical Exam Exam: See Below Course - Vital Signs Last Recorded V/S: Last Vital Signs Temp 97.5 F 08/01/19 21:32 Pulse 86 08/01/19 21:32 Resp 18 08/01/19 21:32 BP 170/79 H 08/01/19 22:50 Pulse Ox 95 08/01/19 21:32 - Orders/Labs/Meds Orders: Active Orders 24 hr Category Date Time Status EKG Documentation Completion [RC] STAT Care 08/01/19 21:38 Active CULTURE URINE [RM] Stat Lab 08/01/19 22:22 Received Labs: Laboratory Tests 08/01/19 Range/Units 22:22 Urine Color YELLOW Urine Appearance CLEAR Urine pH 6.0 (5.0-8.0) Ur Specific [place] 1.010 (1.001-1.035) Urine Protein TRACE H (NEGATIVE) mg/dL Urine Glucose (UA) >=1000 (NEGATIVE) mg/dL Urine Ketones NEGATIVE (NEGATIVE) mg/dL Urine Occult Blood TRACE-INTACT H (NEGATIVE) Urine Nitrite NEGATIVE (NEGATIVE) Urine Bilirubin NEGATIVE (NEGATIVE) Urine Urobilinogen 0.2 (<2.0) EU/dL Ur Leukocyte Esterase SMALL H (NEGATIVE) Urine RBC 0-1 (0-2/HPF) Urine WBC 1-4 (0-5/HPF) Ur Epithelial Cells RARE (NONE-FEW) Urine Bacteria RARE (NEGATIVE) Departure - Departure Time of Disposition: 23:07 Disposition: Home, Self-Care 01 Condition: Good Clinical Impression: Hypertension Qualifiers: Hypertension type: essential hypertension Qualified Code(s): I10 - Essential ( primary) hypertension - Discharge Information Referrals: Afia Leo DO [Primary Care Provider] - Forms: ED Department Discharge Additional Instructions: The following information is given to patients seen in the emergency department who are being discharged to home. This information is to outline your options for follow-up care. We provide all patients seen in our emergency department with a follow-up referral. The need for follow-up, as well as the timing and circumstances, are variable depending upon the specifics of your emergency department visit. If you don't have a primary care physician on staff, we will provide you with a referral. We always advise you to contact your personal physician following an emergency department visit to inform them of the circumstance of the visit and for follow-up with them and/or the need for any referrals to a consulting specialist. The emergency department will also refer you to a specialist when appropriate. This referral assures that you have the opportunity for follow-up care with a specialist. All of these measure are taken in an effort to provide you with optimal care, which includes your follow-up. Under all circumstances we always encourage you to contact your private physician who remains a resource for coordinating your care. When calling for follow-up care, please make the office aware that this follow-up is from your recent emergency room visit. If for any reason you are refused follow-up, please contact the [facility] emergency department at and asked to speak to the emergency department charge nurse. - My Orders Last 24 Hours: My Active Orders 08/01/19 22:22 CULTURE URINE [RM] Stat - Assessment/Plan Last 24 Hours: My Active Orders 08/01/19 22:22 CULTURE URINE [] Stat
--- NOTE | 2019-08-01 22:13 | CR ---
INDICATION: Chest pain, shortness of breath TECHNIQUE: Chest radiograph 1 view COMPARISON: 07/30/19 FINDINGS: Mediastinum: There is a new nodular density in the right hilar region measuring 1.8 cm. The heart silhouette is normal in size and morphology. Lung: Both lungs are unremarkable in appearance. No sign of pleural effusion seen. No pneumothorax is identified. Bone and Soft tissue: Unremarkable for age. IMPRESSION: 1. There is a new nodular density in the right hilar region measuring 1.8 cm. This may represent a summation artifact but a new small focus of infiltrate can have a similar appearance. Dictated by Nayan Stout MD @ 08/01/2019 10:10:26 PM Dictated by: Nayan Stout MD @ 08/01/2019 22:11:00 (Electronically Signed)
== END 2019-08-01 23:16 | disposition home or self-care (01) ==
LOC: MW.ED 21:22
DX: I10 Essential (primary) hypertension (principal); E78.00 Pure hypercholesterolemia, unspecified; E11.9 Type 2 diabetes mellitus without complications; F41.9 Anxiety disorder, unspecified; Z79.82 Long term (current) use of aspirin; Z79.84 Long term (current) use of oral hypoglycemic drugs; Z79.899 Other long term (current) drug therapy
CPT/HCPCS: 71045; 71045-26; 81001; 87086; 93005; 99282; 99285-25